=== PATIENT | female | born 1995 | race Caucasian/White ===

== ENCOUNTER → 2017-08-24 | Outpatient (REF) | payer MEDICAID ==
[2017-08-24 19:29] LABS: BASO # 0.1 10^3/uL (0.0-0.2); BASO % 0.8 % (0.0-1.0); EOS # 0.1 10^3/uL (0.0-0.50); EOS % 1.1 % (0.0-3.0); HEMATOCRIT 43.8 % (36.0-47.0); HEMOGLOBIN 14.6 g/dl (12.0-15.5); IMMATURE GRANULOCYTE % 0.7 % (0-3.0); LYMPH # 2.5 10^3/uL (1.5-6.5); LYMPH % 26.7 % (24.0-44.0); MEAN CORPUSCULAR HEMOGLOBIN 29.5 pg (27.0-33.0); MEAN CORPUSCULAR HGB CONC 33.3 g/dl (32.0-36.5); MEAN CORPUSCULAR VOLUME 88.5 fl (80.0-96.0); MONO # 0.7 10^3/uL (0.0-0.8); MONO % 8.1 % (0.0-5.0); NEUTROPHILS # 5.7 10^3/uL (1.8-7.7); NEUTROPHILS % 62.6 % (36.0-66.0); PLATELET COUNT, AUTOMATED 234 10^3/uL (150-450); RED BLOOD COUNT 4.95 10^6/uL (4.00-5.40); RED CELL DISTRIBUTION WIDTH 12.8 % (11.5-14.5); WHITE BLOOD COUNT 9.2 10^3/uL (4.0-10.0)
[2017-08-24 20:11] LABS: MAU/CREAT RATIO 63.8 MCG/MG (0.0-30.0)
[2017-08-24 20:12] LABS: ALBUMIN 3.7 GM/DL (3.2-5.2); ALBUMIN/GLOBULIN RATIO 0.95 (1.00-1.93); ALKALINE PHOSPHATASE 89 U/L (45-117); ALT/SGPT 65 U/L (12-78); ANION GAP 9 MEQ/L (8-16); AST/SGOT 23 U/L (7-37); BILIRUBIN,TOTAL 0.3 MG/DL (0.2-1.0); BLOOD UREA NITROGEN 13 MG/DL (7-18); CARBON DIOXIDE LEVEL 26 MEQ/L (21-32); CHLORIDE LEVEL 107 MEQ/L (98-107); CHOLESTEROL LEVEL 183 MG/DL (<200); CHOLESTEROL RISK RATIO 4.463 (<5); CREATININE FOR GFR 0.77 MG/DL (0.55-1.30); FREE T4 0.97 NG/DL (0.78-1.33); GLUCOSE, FASTING 82 MG/DL (70-100); HCG, SERUM QUANTITATIVE < 1.0 MIU/ML; HDL CHOLESTEROL 41 MG/DL (>40); LDL CHOLESTEROL 89.6 MG/DL (<100); NON-HDL-C 142 MG/DL; POTASSIUM SERUM 4.3 MEQ/L (3.5-5.1); SODIUM LEVEL 142 MEQ/L (136-145); TOTAL PROTEIN 7.6 GM/DL (6.4-8.2); TRIGLYCERIDES LEVEL 262 MG/DL (<150)
[2017-08-24 20:27] LABS: LUTEINIZING HORMONE 14.9 mIU/mL
[2017-08-24 20:28] LABS: FOLLICLE STIMULATING HORMONE 7.9 mIU/mL
[2017-08-25 03:42] LABS: ESTIMATED AVERAGE GLUCOSE 91 MG/DL (60-110); HEMOGLOBIN A1c 4.8 %
== END ==
LOC: M LAB REF 18:39
DX: Z13.220 Encounter for screening for lipoid disorders (principal); E11.9 Type 2 diabetes mellitus without complications; N91.1 Secondary amenorrhea; Z13.0 Encounter for screening for diseases of the blood and blood-forming organs and certain disorders involving the immune mechanism
CPT/HCPCS: 83001

== ENCOUNTER 2018-08-15 16:04 | Emergency (ER) | payer MEDICARE, MEDICAID ==
[~2018-08-15] VITALS: Ht 167.6 cm; Wt 112.9 kg
[2018-08-15 18:17] LABS: ALBUMIN 4.1 GM/DL (3.2-5.2); ALT/SGPT 42 U/L (12-78); BILIRUBIN,DIRECT < 0.1 MG/DL (0.0-0.2); BILIRUBIN,TOTAL 0.3 MG/DL (0.2-1.0); BLOOD UREA NITROGEN 14 MG/DL (7-18); CALCIUM LEVEL 9.5 MG/DL (8.5-10.1); CARBON DIOXIDE LEVEL 25 MEQ/L (21-32); CHLORIDE LEVEL 107 MEQ/L (98-107); CREATININE FOR GFR 0.99 MG/DL (0.55-1.30); GLUCOSE, FASTING 91 MG/DL (70-100); POTASSIUM SERUM 4.2 MEQ/L (3.5-5.1); SODIUM LEVEL 139 MEQ/L (136-145)
[2018-08-15 18:20] LABS: BASO # 0.1 10^3/uL (0.0-0.2); BASO % 0.5 % (0.0-1.0); EOS # 0.1 10^3/uL (0.0-0.50); EOS % 0.9 % (0.0-3.0); HEMATOCRIT 43.7 % (36.0-47.0); HEMOGLOBIN 14.7 g/dl (12.0-15.5); LYMPH # 3.1 10^3/uL (1.5-6.5); LYMPH % 26.3 % (24.0-44.0); MEAN CORPUSCULAR HEMOGLOBIN 29.5 pg (27.0-33.0); MEAN CORPUSCULAR HGB CONC 33.6 g/dl (32.0-36.5); MEAN CORPUSCULAR VOLUME 87.6 fl (80.0-96.0); MONO # 0.9 10^3/uL (0.0-0.8); MONO % 7.7 % (0.0-5.0); NEUTROPHILS # 7.6 10^3/uL (1.8-7.7); PLATELET COUNT, AUTOMATED 265 10^3/uL (150-450); RED BLOOD COUNT 4.99 10^6/uL (4.00-5.40); WHITE BLOOD COUNT 11.9 10^3/uL (4.0-10.0)
[2018-08-15 19:03] VITALS: BP 140/88
== END 2018-08-15 19:32 | disposition home or self-care (01) ==
LOC: M ED 16:04
DX: R11.10 Vomiting, unspecified (principal); I10 Essential (primary) hypertension; Z79.899 Other long term (current) drug therapy

== ENCOUNTER 2018-10-13 19:54 | Emergency (ER) | payer MEDICARE, MEDICAID ==
[2018-10-13 20:32] LABS: HEMATOCRIT 42.6 % (36.0-47.0); HEMOGLOBIN 14.4 g/dl (12.0-15.5); MEAN CORPUSCULAR HGB CONC 33.8 g/dl (32.0-36.5); MEAN CORPUSCULAR VOLUME 88.8 fl (80.0-96.0); PLATELET COUNT, AUTOMATED 227 10^3/uL (150-450); WHITE BLOOD COUNT 11.1 10^3/uL (4.0-10.0)
[2018-10-13 20:44] LABS: HCG, SERUM QUALITATIVE NEGATIVE (NEGATIVE)
[2018-10-13 20:59] LABS: ACETAMINOPHEN LEVEL < 2.0 UG/ML (10.0-30.0); ALBUMIN 3.6 GM/DL (3.2-5.2); ALT/SGPT 32 U/L (12-78); BILIRUBIN,DIRECT < 0.1 MG/DL (0.0-0.2); BILIRUBIN,TOTAL 0.1 MG/DL (0.2-1.0); BLOOD UREA NITROGEN 14 MG/DL (7-18); CALCIUM LEVEL 8.7 MG/DL (8.5-10.1); CARBON DIOXIDE LEVEL 24 MEQ/L (21-32); CHLORIDE LEVEL 110 MEQ/L (98-107); CREATININE FOR GFR 0.84 MG/DL (0.55-1.30); ETHYL ALCOHOL (ETHANOL) < 0.003 % (0.000-0.010); GLUCOSE, FASTING 96 MG/DL (70-100); POTASSIUM SERUM 3.9 MEQ/L (3.5-5.1); SALICYLATE LEVEL < 1.7 MG/DL (5.0-30.0); SODIUM LEVEL 145 MEQ/L (136-145); TOTAL PROTEIN 7.2 GM/DL (6.4-8.2)
[2018-10-13 21:09] VITALS: BP 140/82
[2018-10-13 21:11] LABS: AMPHETAMINES LEVEL URINE NEGATIVE (NEGATIVE); BARBITURATES URINE NEGATIVE (NEGATIVE); BENZODIAZEPINES URINE NEGATIVE (NEGATIVE); CANNABINOIDS URINE NEGATIVE (NEGATIVE); COCAINE METABOLITE URINE NEGATIVE (NEGATIVE); METHADONE URINE NEGATIVE (NEGATIVE); OPIATES URINE NEGATIVE (NEGATIVE); PHENCYCLIDINE URINE NEGATIVE (NEGATIVE)
== END 2018-10-13 21:11 | disposition home or self-care (01) ==
LOC: M ED 19:54
DX: Z60.9 Problem related to social environment, unspecified (principal); F41.9 Anxiety disorder, unspecified; Z72.0 Tobacco use
CPT/HCPCS: 36415; 80048; 80076; 80307; 84443; 84703; 85027; 99284; G0480

== ENCOUNTER 2018-10-24 00:05 | Emergency (ER) | payer MEDICARE, MEDICAID ==
[2018-10-24 00:06] VITALS: BP 145/87
[2018-10-24 00:52] LABS: BASO # 0.1 10^3/uL (0.0-0.2); BASO % 0.5 % (0.0-1.0); EOS # 0.1 10^3/uL (0.0-0.50); EOS % 0.8 % (0.0-3.0); HEMATOCRIT 40.7 % (36.0-47.0); HEMOGLOBIN 13.7 g/dl (12.0-15.5); LYMPH # 3.6 10^3/uL (1.5-6.5); LYMPH % 26.4 % (24.0-44.0); MEAN CORPUSCULAR HEMOGLOBIN 29.5 pg (27.0-33.0); MEAN CORPUSCULAR HGB CONC 33.7 g/dl (32.0-36.5); MEAN CORPUSCULAR VOLUME 87.7 fl (80.0-96.0); MONO # 0.9 10^3/uL (0.0-0.8); MONO % 6.5 % (0.0-5.0); NEUTROPHILS # 8.8 10^3/uL (1.8-7.7); NEUTROPHILS % 65.2 % (36.0-66.0); PLATELET COUNT, AUTOMATED 242 10^3/uL (150-450); RED BLOOD COUNT 4.64 10^6/uL (4.00-5.40); WHITE BLOOD COUNT 13.5 10^3/uL (4.0-10.0)
[2018-10-24 01:17] LABS: HCG, SERUM QUALITATIVE NEGATIVE (NEGATIVE)
[2018-10-24 01:26] LABS: ALBUMIN 3.5 GM/DL (3.2-5.2); ALT/SGPT 33 U/L (12-78); BILIRUBIN,DIRECT < 0.1 MG/DL (0.0-0.2); BILIRUBIN,TOTAL < 0.1 MG/DL (0.2-1.0); BLOOD UREA NITROGEN 21 MG/DL (7-18); CALCIUM LEVEL 9.4 MG/DL (8.5-10.1); CARBON DIOXIDE LEVEL 25 MEQ/L (21-32); CHLORIDE LEVEL 107 MEQ/L (98-107); GLUCOSE, FASTING 93 MG/DL (70-100); LIPASE 186 U/L (73-393); SODIUM LEVEL 140 MEQ/L (136-145); TOTAL PROTEIN 7.4 GM/DL (6.4-8.2)
--- NOTE | 2018-10-24 08:55 | REP ---
RIGHT UPPER QUADRANT ULTRASOUND: Real-time sonographic evaluation of the right upper quadrant was performed. Patient had a recent meal. Gallbladder is not well visualized and may be contracted. There is no evidence of intrahepatic or extrahepatic biliary dilatation. Common bile duct measuring 3 mm. The liver demonstrates diffuse increased echotexture suggesting diffuse fatty infiltration. No gross mass is seen. Pancreas could not be visualized due to overlying bowel gas. Right kidney demonstrates no hydronephrosis with normal size of 11.7 cm in length. No ascites is seen. IMPRESSION: The patient had a recent meal. Gallbladder is not visualized and may be contracted. No evidence of biliary dilatation. There appears to be diffuse fatty infiltration of the liver. Preliminary report was provided by virtual radiology at the time of the exam. Electronically Signed by Fabricio Carrera MD 10/24/2018 09:24 A
== END 2018-10-24 02:05 | disposition left against medical advice (07) ==
LOC: M ED 00:05
DX: K76.0 Fatty (change of) liver, not elsewhere classified (principal); E11.9 Type 2 diabetes mellitus without complications; I10 Essential (primary) hypertension; F17.210 Nicotine dependence, cigarettes, uncomplicated; Z53.21 Procedure and treatment not carried out due to patient leaving prior to being seen by health care provider

== ENCOUNTER 2018-12-07 22:42 | Emergency (ER) | payer MEDICARE, MEDICAID ==
[~2018-12-07] VITALS: Ht 170.2 cm; Wt 114.0 kg
[2018-12-07] MEDS ORDERED: KETOROLAC 30 MG/ML VIAL (J1885) IV ONE (23:15)
[2018-12-07] MEDS ORDERED: diphenhydrAMINE INJ 50MG/ML VIAL (J1200) IV ONE (23:15)
[2018-12-07] MEDS ORDERED: NS 1,000 ML IV ONE (23:15)
[2018-12-07] MEDS ORDERED: METOCLOPRAMIDE INJ 10MG/2ML VIAL (J2765) IV ONE (23:15)
[2018-12-08 01:00] VITALS: BP 131/73
[2019-04-01] MEDS ORDERED: LISI10TA4 PO (20:43)
== END 2018-12-08 01:08 | disposition home or self-care (01) ==
LOC: M ED 22:42
DX: G43.909 Migraine, unspecified, not intractable, without status migrainosus (principal); I10 Essential (primary) hypertension; F17.210 Nicotine dependence, cigarettes, uncomplicated
CPT/HCPCS: 84702; 96361; 96374; 96375; 99284; J1200; J1885; J2765

== ENCOUNTER 2019-04-01 20:34 | Emergency (ER) | payer MEDICARE, MEDICAID ==
[~2019-04-01] VITALS: Ht 167.6 cm; Wt 114.0 kg
[2019-04-01] MEDS ORDERED: LISI10TA4 (20:43)
[2019-04-01 21:51] LABS: BASO % 0.4 % (0.0-1.0); EOS # 0.1 10^3/uL (0.0-0.5); EOS % 1.3 % (0.0-3.0); HEMATOCRIT 43.7 % (36.0-47.0); HEMOGLOBIN 14.4 g/dl (12.0-15.5); LYMPH # 2.7 10^3/uL (1.5-5.0); MEAN CORPUSCULAR HEMOGLOBIN 29.5 pg (27.0-33.0); MEAN CORPUSCULAR VOLUME 89.5 fl (80.0-96.0); MONO # 0.8 10^3/uL (0.0-0.8); MONO % 7.7 % (0.0-5.0); NEUTROPHILS % 65.1 % (36.0-66.0); PLATELET COUNT, AUTOMATED 228 10^3/uL (150-450); RED BLOOD COUNT 4.88 10^6/uL (4.00-5.40); WHITE BLOOD COUNT 10.8 10^3/uL (4.0-10.0)
[2019-04-01 22:57] LABS: ALT/SGPT 38 U/L (12-78); BILIRUBIN,DIRECT < 0.1 MG/DL (0.0-0.2); BILIRUBIN,TOTAL 0.2 MG/DL (0.2-1.0); LIPASE 173 U/L (73-393); TOTAL PROTEIN 8.1 GM/DL (6.4-8.2)
[2019-04-01] MEDS ORDERED: ONDA4TAB6 PO (23:12)
[2019-04-01 23:20] VITALS: BP 159/89
== END 2019-04-01 23:21 | disposition home or self-care (01) ==
LOC: M ED 20:34
DX: R11.10 Vomiting, unspecified (principal); E11.9 Type 2 diabetes mellitus without complications; I10 Essential (primary) hypertension; Z79.899 Other long term (current) drug therapy; Z79.3 Long term (current) use of hormonal contraceptives; F17.210 Nicotine dependence, cigarettes, uncomplicated

== ENCOUNTER 2019-04-27 15:10 | Emergency (ER) | payer MEDICARE, MEDICAID ==
[~2019-04-27] VITALS: Ht 167.6 cm; Wt 113.9 kg
[~2019-04-27 15:10] MED LIST: LISI10TA4 PO; ONDA4TAB6 PO
[2019-04-27 15:11] VITALS: BP 152/88
[2019-04-30 00:06] LABS: HSV IgM TYPES 1&2 1.55 Ratio (0.00-0.90)
== END 2019-04-27 16:10 | disposition home or self-care (01) ==
LOC: M ED 15:10
DX: Z20.2 Contact with and (suspected) exposure to infections with a predominantly sexual mode of transmission (principal); E11.9 Type 2 diabetes mellitus without complications; I10 Essential (primary) hypertension; F17.210 Nicotine dependence, cigarettes, uncomplicated; Z79.84 Long term (current) use of oral hypoglycemic drugs

== ENCOUNTER 2019-08-01 21:56 | Emergency (ER) | payer MEDICARE, MEDICAID ==
[~2019-08-01] VITALS: Ht 167.6 cm; Wt 91.8 kg
[2019-08-01 22:25] LABS: HEMATOCRIT 41.3 % (36.0-47.0); HEMOGLOBIN 14.1 g/dl (12.0-15.5); MEAN CORPUSCULAR HEMOGLOBIN 29.4 pg (27.0-33.0); MEAN CORPUSCULAR HGB CONC 34.1 g/dl (32.0-36.5); PLATELET COUNT, AUTOMATED 254 10^3/uL (150-450); WHITE BLOOD COUNT 10.7 10^3/uL (4.0-10.0)
[2019-08-01] MEDS ORDERED: IBUPROFEN 800 MG TAB PO ONE (22:30)
[2019-08-01] MEDS ORDERED: IBUP-1022 PO (23:36)
[2019-08-01] MEDS ORDERED: LABE100T36 PO (23:36)
[2019-08-01 23:39] VITALS: BP 156/82
--- NOTE | 2019-08-01 23:49 | REPVR ---
PROCEDURE INFORMATION: Exam: US Pelvis Complete, Transabdominal Exam date and time: 08/01/2019 11:23 PM Age: 23 years old Clinical indication: Other: Heavy vaginal bleeding; Additional info: Abnormal vaginal bleeding, pelvic pain.BHCG < 5 units. LMP 07/25/2019. TECHNIQUE: Imaging protocol: Real-time transabdominal pelvic ultrasound with image documentation. Complete exam. COMPARISON: No relevant prior studies available. FINDINGS: Uterus/cervix: Uterus is anteverted. No mass lesions seen. Uterus measures 8.4 x 3.6 x 0.3 cm. Endometrial thickness measures 5 mm. Right adnexa: Right ovary measures 5 x 4 x 4 cm. Left adnexa: Left ovary measures 2.5 x 2.2 x 1.8 cm. Complex cyst in the right ovary measuring 4.8 x 4.0 x 3.9 cm, likely a hemorrhagic cyst. Free fluid: Trace free fluid. Bladder: Normal. Other findings: Normal vascular flow to bilateral ovaries. IMPRESSION: Complex cyst in the right ovary, likely a hemorrhagic cyst. Follow-up can be obtained. Electronically signed by: Lebron Bennett On 08/01/2019 23:49:04 PM
== END 2019-08-01 23:44 | disposition home or self-care (01) ==
LOC: M ED 21:56
DX: N93.8 Other specified abnormal uterine and vaginal bleeding (principal); N83.201 Unspecified ovarian cyst, right side; N83.202 Unspecified ovarian cyst, left side; I10 Essential (primary) hypertension; Z91.19 Patient's noncompliance with other medical treatment and regimen; E11.9 Type 2 diabetes mellitus without complications; Z92.0 Personal history of contraception

== ENCOUNTER 2019-11-07 22:53 | Emergency (ER) | payer MEDICARE, MEDICAID ==
[~2019-11-07] VITALS: Ht 167.6 cm; Wt 116.9 kg
[~2019-11-07 22:53] MED LIST changes: +IBUP-1022 PO; +LABE100T36 PO
[2019-11-08 00:10] VITALS: BP 160/90
[2019-11-08] MEDS ORDERED: ACETAMINOPHEN 500 MG TAB PO ONE (00:15)
[2019-11-08] MEDS ORDERED: KETOROLAC 30 MG/ML 1ML VIAL IM ONE (00:15)
[2019-11-08] MEDS ORDERED: METOCLOPRAMIDE INJ 10MG/2ML VIAL (J2765 PER 1) IV ONE (00:15)
[2019-11-08] MEDS ORDERED: LABETALOL 100 MG TAB PO ONE (00:15)
[2019-11-08] MEDS ORDERED: NS 1,000 ML IV ONE (00:15)
[2019-11-08 00:31] VITALS: BP 160/90
== END 2019-11-08 00:47 | disposition left against medical advice (07) ==
LOC: M ED 22:53
DX: R51 Headache (principal); F17.200 Nicotine dependence, unspecified, uncomplicated; I10 Essential (primary) hypertension; Z53.20 Procedure and treatment not carried out because of patient's decision for unspecified reasons
CPT/HCPCS: 96372; 96374; 99284; J1885; J2765

== ENCOUNTER 2020-01-05 17:44 | Emergency (ER) | payer MEDICARE, MEDICAID ==
[~2020-01-05] VITALS: Ht 167.6 cm; Wt 114.9 kg
[2020-01-05 17:44] VITALS: BP 149/91
== END 2020-01-05 20:35 | disposition left against medical advice (07) ==
LOC: M ED 17:44
DX: Z53.21 Procedure and treatment not carried out due to patient leaving prior to being seen by health care provider (principal)

== ENCOUNTER 2020-06-09 22:51 | Emergency (ER) | payer MEDICARE, MEDICAID ==
[~2020-06-09] VITALS: Ht 167.6 cm; Wt 114.5 kg
[2020-06-09 22:51] VITALS: BP 152/79
--- OUTSIDE RECORDS SUMMARY | 2020-06-09 22:57 | CCD ---
Author Author [facility] Organization [facility] Address Unknown Phone Unavailable Care Team Providers Care Psychotherapist Social Worker Name Role Phone Marcos, Elva HOSPITAL TRAY SERVICE WORKER HOSPITAL TRAY SERVICE WORKER Unavailable Unavailable Marcos, A Elva HOSPITAL TRAY SERVICE WORKER Unavailable Unavailable Marcos, A Elva HOSPITAL TRAY SERVICE WORKER Unavailable Unavailable Marcos, A Elva HOSPITAL TRAY SERVICE WORKER Unavailable Unavailable Marcos, A Elva HOSPITAL TRAY SERVICE WORKER Unavailable Unavailable Marcos, A Elva HOSPITAL TRAY SERVICE WORKER Unavailable Unavailable Marcos, A Elva HOSPITAL TRAY SERVICE WORKER Unavailable Unavailable Marcos, A Elva HOSPITAL TRAY SERVICE WORKER Unavailable Unavailable Marcos, A Elva HOSPITAL TRAY SERVICE WORKER Unavailable Unavailable Marcos, A Elva HOSPITAL TRAY SERVICE WORKER Unavailable Unavailable Marcos, A Elva HOSPITAL TRAY SERVICE WORKER Unavailable Unavailable Marcos, A Elva HOSPITAL TRAY SERVICE WORKER Unavailable Unavailable Marcos, A Elva HOSPITAL TRAY SERVICE WORKER Unavailable Unavailable Marcos, A Elva HOSPITAL TRAY SERVICE WORKER Unavailable Unavailable Marcos, A Elva HOSPITAL TRAY SERVICE WORKER Unavailable Unavailable Marcos, A Elva HOSPITAL TRAY SERVICE WORKER Unavailable Unavailable Marcos, A Elva HOSPITAL TRAY SERVICE WORKER Unavailable Unavailable Marcos, A Elva HOSPITAL TRAY SERVICE WORKER Unavailable Unavailable Marcos, A Elva HOSPITAL TRAY SERVICE WORKER Unavailable Unavailable Marcos, A Elva HOSPITAL TRAY SERVICE WORKER Unavailable Unavailable Marcos, A Elva HOSPITAL TRAY SERVICE WORKER Unavailable Unavailable Marcos, A Elva HOSPITAL TRAY SERVICE WORKER Unavailable Unavailable Marcos, A Elva HOSPITAL TRAY SERVICE WORKER Unavailable Unavailable Marcos, A Elva HOSPITAL TRAY SERVICE WORKER Unavailable Unavailable Marcos, A Elva HOSPITAL TRAY SERVICE WORKER Unavailable Unavailable Marcos, A Elva HOSPITAL TRAY SERVICE WORKER Unavailable Unavailable Marcos, A Elva HOSPITAL TRAY SERVICE WORKER Unavailable Unavailable Marcos, A Elva HOSPITAL TRAY SERVICE WORKER Unavailable Unavailable Marcos, A Elva HOSPITAL TRAY SERVICE WORKER Unavailable Unavailable Re-disclosure Warning The records that you are about to access may contain information from federally-assisted alcohol or drug abuse programs. If such information is present, then the following federally mandated warning applies: This information has been disclosed to you from records protected by federal confidentiality rules (42 CFR part 2). The federal rules prohibit you from making any further disclosure of this information unless further disclosure is expressly permitted by the written consent of the person to whom it pertains or as otherwise permitted by 42 CFR part 2. A general authorization for the release of medical or other information is NOT sufficient for this purpose. The Federal rules restrict any use of the information to criminally investigate or prosecute any alcohol or drug abuse patient.The records that you are about to access may contain highly sensitive health information, the redisclosure of which is protected by Article 27-F of the [facility] Public Health law. If you continue you may have access to information: Regarding HIV / AIDS; Provided by facilities licensed or operated by the [facility] Office of Mental Health; or Provided by the [facility] Office for People With Developmental Disabilities. If such information is present, then the following [facility] mandated warning applies: This information has been disclosed to you from confidential records which are protected by state law. State law prohibits you from making any further disclosure of this information without the specific written consent of the person to whom it pertains, or as otherwise permitted by law. Any unauthorized further disclosure in violation of state law may result in a fine or alf sentence or both. A general authorization for the release of medical or other information is NOT sufficient authorization for further disc losure. Family History Family Member Name Family Member Gender Family Member Status Date o f Status Description Data Source(s) Unknown Male Diagnosis 06/28/2015 12:00:00 AM [facility] Services Encounters Encounter Providers Location Date Indications Data Source(s ) Outpatient Attender: KATJA FAM 03/25/2020 12:59:00 P M EST [facility] Outpatient Attender: KATJA Rodríguez HOSPITAL TRAY SERVICE WORKER FP 12/03/2019 09:03:00 A M EDT [facility] Outpatient Attender: KATJA Rodríguez HOSPITAL TRAY SERVICE WORKER FP 10/16/2019 01:36:00 P M EDT [facility] Outpatient Attender: Elva Rodríguez HOSPITAL TRAY SERVICE WORKER FP 09/17/2019 11:1 5:02 AM EDT [facility] Outpatient 07/16/2019 12:45:[address] [facility] Outpatient Attender: KATJA Rodríguez HOSPITAL TRAY SERVICE WORKER FP 07/15/2019 01:12:00 P M EDT [facility] Outpatient Attender: KATJA Rodríguez HOSPITAL TRAY SERVICE WORKER FP 06/23/2019 09:01:07 P M EST [facility] Outpatient Attender: KATJA Rodríguez HOSPITAL TRAY SERVICE WORKER FP 04/25/2019 08:03:30 P M EST [facility] 04/18/2019 02:08:00 PM EST - 04/18/2 019 02:08:00 PM EST [facility] 04/18/2019 02:08:00 PM EST - 2 019 02:08:00 PM EST [facility] N [id number] 04/18/2019 01:55:00 PM EST [facility] Insurance Providers Payer name Policy type / Coverage type Policy ID Covered constitution party ID Covered constitution party's relationship to merritt Policy [employer] Plan Information EMEDNY [id number] SP [id number] MEDICARE [id number] SP [id number] E51 Medicaid S [id number] S [id number] Medicare P [id number] S [id number] E51 Medicaid S [id number] S [id number] MEDICAID [id number] SP [id number] MEDICAID M [id number] S [id number] MEDICARE C [id number] S [id number] [id number] MEDICAID [id number] self 60 Medicaid [id number] Self [id number] Medicaid S [id number] S [id number] MEDICARE [id number] SP [id number] E51 Medicaid P [id number] S [id number] MEDICAID [facility] [id number] SP [id number] Results ID Date Data Source [id number] 04/18/2019 02:09:08 PM EST [facility] [employer] Services Name Value Range Interpretation Code Description Data Josselyn rce(s) Supporting Document(s) PHOTO ID [facility] ID Date Data Source [id number] 04/18/2019 02:08:46 PM EST [facility] [employer] Services Name Value Range Interpretation Code Description Data Josselyn rce(s) Supporting Document(s) INSURANCE CARD 1 [facility] ID Date Data Source [id number] 04/18/2019 02:08:30 PM EST [facility] [employer] Services Name Value Range Interpretation Code Description Data Josselyn rce(s) Supporting Document(s) INSURANCE CARD 1 [facility] Procedure
--- OUTSIDE RECORDS SUMMARY | 2020-06-10 00:13 | CCD ---
Author Author [facility] Organization [facility] Address Unknown Phone Unavailable Care Team Providers Care Night Assistant Name Role Phone Marcos, Elva RADIOLOGICAL ENGINEER RADIOLOGICAL ENGINEER Unavailable Unavailable Marcos, A Elva RADIOLOGICAL ENGINEER Unavailable Unavailable Marcos, A Elva RADIOLOGICAL ENGINEER Unavailable Unavailable Marcos, A Elva RADIOLOGICAL ENGINEER Unavailable Unavailable Marcos, A Elva RADIOLOGICAL ENGINEER Unavailable Unavailable Marcos, A Elva RADIOLOGICAL ENGINEER Unavailable Unavailable Marcos, A Elva RADIOLOGICAL ENGINEER Unavailable Unavailable Marcos, A Elva RADIOLOGICAL ENGINEER Unavailable Unavailable Marcos, A Elva RADIOLOGICAL ENGINEER Unavailable Unavailable Marcos, A Elva RADIOLOGICAL ENGINEER Unavailable Unavailable Marcos, A Elva RADIOLOGICAL ENGINEER Unavailable Unavailable Marcos, A Elva RADIOLOGICAL ENGINEER Unavailable Unavailable Marcos, A Elva RADIOLOGICAL ENGINEER Unavailable Unavailable Marcos, A Elva RADIOLOGICAL ENGINEER Unavailable Unavailable Marcos, A Elva RADIOLOGICAL ENGINEER Unavailable Unavailable Marcos, A Elva RADIOLOGICAL ENGINEER Unavailable Unavailable Marcos, A Elva RADIOLOGICAL ENGINEER Unavailable Unavailable Marcos, A Elva RADIOLOGICAL ENGINEER Unavailable Unavailable Marcos, A Elva RADIOLOGICAL ENGINEER Unavailable Unavailable Marcos, A Elva RADIOLOGICAL ENGINEER Unavailable Unavailable Marcos, A Elva RADIOLOGICAL ENGINEER Unavailable Unavailable Marcos, A Elva RADIOLOGICAL ENGINEER Unavailable Unavailable Marcos, A Elva RADIOLOGICAL ENGINEER Unavailable Unavailable Marcos, A Elva RADIOLOGICAL ENGINEER Unavailable Unavailable Marcos, A Elva RADIOLOGICAL ENGINEER Unavailable Unavailable Marcos, A Elva RADIOLOGICAL ENGINEER Unavailable Unavailable Marcos, A Elva RADIOLOGICAL ENGINEER Unavailable Unavailable Marcos, A Elva RADIOLOGICAL ENGINEER Unavailable Unavailable Marcos, A Elva RADIOLOGICAL ENGINEER Unavailable Unavailable Re-disclosure Warning The records that [...] is protected by Article 27-F of the [facility] Public Health law. If you continue you may have access to information: Regarding HIV / AIDS; Provided by facilities licensed or operated by the [facility] Office of Mental Health; or Provided by the [facility] Office for People With Developmental Disabilities. If such information is present, then the following [facility] mandated warning applies: This information has been [...] law may result in a fine or fdc sentence or both. A general authorization for the release of medical or other information is NOT sufficient authorization for further disc losure. Family History Family Member Name Family Member Gender Family Member Status Date o f Status Description Data Source(s) Unknown Male Diagnosis 06/28/2015 12:00:00 AM [facility] Services Encounters Encounter Providers Location Date Indications Data Source(s ) Outpatient Attender: KATJA FAM 03/25/2020 12:59:00 P M EST [facility] Outpatient Attender: KATJA Rodríguez RADIOLOGICAL ENGINEER FP 12/03/2019 09:03:00 A M EDT [facility] Outpatient Attender: KATJA Rodríguez RADIOLOGICAL ENGINEER FP 10/16/2019 01:36:00 P M EDT [facility] Outpatient Attender: Elva Rodríguez RADIOLOGICAL ENGINEER FP 09/17/2019 11:1 5:02 AM EDT [facility] Outpatient 07/16/2019 12:45:00 PM EDT [facility] Outpatient Attender: KATJA Rodríguez RADIOLOGICAL ENGINEER FP 07/15/2019 01:12:00 P M EDT [facility] Outpatient Attender: KATJA Rodríguez RADIOLOGICAL ENGINEER FP 06/23/2019 09:01:07 P M EST [facility] Outpatient Attender: KATJA Rodríguez RADIOLOGICAL ENGINEER FP 04/25/2019 08:03:30 P M EST [facility] 04/18/2019 02:08:00 PM EST - 04/18/2 019 02:08:00 PM EST [facility] 04/18/2019 02:08:00 PM EST - 2 019 02:08:00 PM EST [facility] N [id number] 04/18/2019 01:55:00 PM EST [facility] Insurance Providers Payer name Policy type / Coverage type Policy ID Covered alliance party ID Covered alliance party's relationship to merritt Policy [employer] Plan Information EMEDNY [id number] SP [id number] MEDICARE [id number] SP [id number] E51 Medicaid S [id number] S [id number] Medicare P [id number] S [id number] E51 Medicaid S [id number] S [id number] MEDICAID [id number] SP [id number] MEDICAID M [id number] S [id number] MEDICARE C [id number] S [id number] E51 MEDICAID 60 self 60 Medicaid [id number] Self [id number] Medicaid S [id number] S [id number] MEDICARE [id number] SP [id number] E51 Medicaid P [id number] S [id number] MEDICAID [facility] [id number] SP [id number] Results ID Date Data Source [id number] 04/18/2019 02:09:08 PM EST [facility] Name Value Range Interpretation Code Description Data Josselyn rce(s) Supporting Document(s) PHOTO ID [facility] ID Date Data Source [id number] 04/18/2019 02:08:46 PM EST [facility] Name Value Range Interpretation Code Description Data Josselyn rce(s) Supporting Document(s) INSURANCE CARD [address] [facility] ID Date Data Source [id number] 04/18/2019 02:08:30 PM EST [facility] Name Value Range Interpretation Code Description Data Josselyn rce(s) Supporting Document(s) INSURANCE CARD [address] [facility] Procedure
== END 2020-06-10 00:04 | disposition left against medical advice (07) ==
LOC: M ED 22:51
DX: Z53.21 Procedure and treatment not carried out due to patient leaving prior to being seen by health care provider (principal)

== ENCOUNTER 2020-07-24 18:14 | Emergency (ER) | payer MEDICAID, MEDICARE ==
[~2020-07-24] VITALS: Ht 167.6 cm; Wt 90.9 kg
[~2020-07-24 18:14] MED LIST changes: -LABE100T36 PO; +LABE100T5 PO; +LISI10TA22 PO; -LISI10TA4 PO
[2020-07-24] MEDS ORDERED: IBUPROFEN 600MG TAB PO ONE (18:35)
[2020-07-24] MEDS ORDERED: LABE100T4 PO (19:03)
[2020-07-24 20:00] VITALS: BP 135/64
[2020-07-24] MEDS ORDERED: NORCO 5/325MG TABLET (BULK FOR ED) PO ONE (20:20)
[2020-07-24] MEDS ORDERED: HYDR-3713 PO (20:22)
--- NOTE | 2020-07-25 07:37 | REP ---
INDICATION: fall COMPARISON: None. TECHNIQUE: There are five views. FINDINGS: There are tiny calcifications medial to the medial joint line, nonspecific, tiny avulsion is versus accessory ossicles. Mineralization and joint spaces are otherwise normal. There are no foreign bodies. There is no effusion. IMPRESSION: Tiny calcifications medial to the medial joint line, avulsion versus accessory ossicles. Otherwise, negative left knee. <Electronically signed by Fabricio Mejias > 07/25/20 [id number]
--- NOTE | 2020-07-26 13:20 | ED PDOC ---
Post-Departure Follow-Up left knee film faxed to dr fernandez and [facility] fp for fu Lico Giraldo MD Jul 26, 2020 13:20
== END 2020-07-24 21:49 | disposition home or self-care (01) ==
LOC: EDBD 18:14 → M ED 18:14
DX: M23.92 Unspecified internal derangement of left knee (principal); Y04.8XXA Assault by other bodily force, initial encounter; Y92.018 Other place in single-family (private) house as the place of occurrence of the external cause; Y93.9 Activity, unspecified; Y99.9 Unspecified external cause status

== ENCOUNTER 2020-09-30 14:01 | Emergency (ER) | payer MEDICARE, MEDICAID ==
[~2020-09-30] VITALS: Ht 172.7 cm; Wt 109.0 kg
[~2020-09-30 14:01] MED LIST changes: +HYDR-3713 PO; +LABE100T4 PO
[2020-09-30] MEDS ORDERED: NAPR220C14 PO (14:08)
[2020-09-30 14:54] LABS: BASO # 0.1 10^3/uL (0.0-0.2); BASO % 0.5 % (0.0-1.0); EOS # 0.1 10^3/uL (0.0-0.5); EOS % 1.2 % (0.0-3.0); HEMATOCRIT 43.9 % (36.0-47.0); HEMOGLOBIN 14.5 g/dl (12.0-15.5); LYMPH # 2.7 10^3/uL (1.5-5.0); LYMPH % 23.8 % (24.0-44.0); MEAN CORPUSCULAR HEMOGLOBIN 27.8 pg (27.0-33.0); MEAN CORPUSCULAR VOLUME 84.3 fl (80.0-96.0); MONO # 0.8 10^3/uL (0.0-0.8); NEUTROPHILS # 7.5 10^3/uL (1.5-8.5); NEUTROPHILS % 67.1 % (36.0-66.0); PLATELET COUNT, AUTOMATED 252 10^3/uL (150-450); RED BLOOD COUNT 5.21 10^6/uL (4.00-5.40); WHITE BLOOD COUNT 11.2 10^3/uL (4.0-10.0)
[2020-09-30 15:17] LABS: ALBUMIN 4.2 GM/DL (3.2-5.2); ALT/SGPT 24 U/L (12-78); AMYLASE 69 U/L (25-115); BILIRUBIN,DIRECT < 0.1 MG/DL (0.0-0.2); BILIRUBIN,TOTAL 0.5 MG/DL (0.2-1.0); LIPASE 114 U/L (73-393); TOTAL PROTEIN 8.1 GM/DL (6.4-8.2)
[2020-09-30] MEDS ORDERED: ISOVUE-370 76% 100ML VIAL As Ordered ONE (15:48)
[2020-09-30] MEDS ORDERED: KETOROLAC 30 MG/ML 1ML VIAL IV ONE (16:00)
--- NOTE | 2020-09-30 16:10 | REP ---
INDICATION: rlq pain. COMPARISON: None TECHNIQUE: Axial contrast-enhanced images from the lung bases to the pubic symphysis using 100 cc Isovue 370 intravenous contrast material. Coronal and sagittal reformations obtained. This CT examination was performed using the following dose reduction techniques: Automated exposure control, adjustment of mA and/or kv according to the patient's size, and the use of iterative reconstruction technique. FINDINGS: Liver demonstrates fatty infiltration without focal hepatic lesion. The spleen, pancreas, gallbladder, bilateral adrenal glands and kidneys are normal. The enteric system including stomach, small, and large bowel appears normal. No evidence for obstruction or acute inflammatory process. Normal terminal ileum and appendix are identified in the right lower quadrant. Pelvis demonstrates 17 x 12 x 11 cm large right adnexal mass containing fluid, soft tissue, bulk fat, and calcification most compatible with large teratoma/dermoid cyst. The uterus and left adnexa appear normal. There is a small amount of free fluid which is nonspecific. No significant ascites. No free air. No intraperitoneal or retroperitoneal adenopathy. Abdominal aorta and vasculature appear normal. Musculoskeletal structures are intact and without acute osseous abnormality. IMPRESSION: 16 cm right adnexal mass most compatible with dermoid/teratoma. <Electronically signed by Randell Wilhelm > 09/30/20 [id number]
--- NOTE | 2020-09-30 17:18 | REP ---
INDICATION: large mass right/ ? torsion COMPARISON: 08/01/2019 TECHNIQUE: Transabdominal pelvic ultrasound with color Doppler evaluation of the ovaries. FINDINGS: Bladder is unremarkable and measures 10.6 x 6.4 x 9.4 cm. Normal anteverted uterus measures 10.2 x 3.1 x 4.9 cm. The endometrial complex measures 4.2 mm thickness. No discrete uterine or endometrial abnormalities are appreciated. Left ovary is normal and measures 3.5 x 2.1 x 2.7 cm (RI 0.50) and includes 2.4 x 2.0 x 2.9 cm simple para ovarian cyst. 18.2 x 9.9 x 17.9 cm complex cystic mass in the right adnexa with solid components and vascularity is compatible with the finding on CT which also demonstrated bulk fat and calcification thereby likely representing teratoma. IMPRESSION: Normal uterus and left ovary/adnexa. Large complex mass in the right hemipelvis most compatible with teratoma. <Electronically signed by Randell Wilhelm > 09/30/20 [id number]
[2020-09-30 18:49] VITALS: BP 170/98
== END 2020-09-30 18:54 | disposition home or self-care (01) ==
LOC: M ED 14:01
DX: D27.0 Benign neoplasm of right ovary (principal); E11.9 Type 2 diabetes mellitus without complications; I10 Essential (primary) hypertension; G43.909 Migraine, unspecified, not intractable, without status migrainosus; K59.00 Constipation, unspecified; F17.200 Nicotine dependence, unspecified, uncomplicated; E66.9 Obesity, unspecified
CPT/HCPCS: 74177; 76856; 80047; 80076; 81001; 82150; 83690; 84702; 85025; 87086; 93976; 96374; 99283; J1885; Q9967